=== PATIENT | female | born 1955 | race Two or more races ===

== ENCOUNTER 2023-12-24 10:01 | Emergency (ER) | payer OTHER, MEDICAID ==
[~2023-12-24] VITALS: Ht 157.5 cm; Wt 61.2 kg
[2023-12-24 10:06] VITALS: BP_SYST 195; PULSE 105; RESP 18; TEMP 97.7; O2SAT 97
[2023-12-24] MEDS: HYDROcodone/ACETAMIN 5-325 MG TAB (NORCO/ VICODIN) PO ONE (10:23)
[2023-12-24] MEDS: IBUPROFEN 800 MG TABLET PO ONE (10:24)
[2023-12-24] MEDS ORDERED: IBUP-1969 PO (11:20)
[2023-12-24] MEDS ORDERED: HYDR-3927 PO (11:20)
[2023-12-24] MEDS: MORPHINE 4 MG INJ. 4 MG/ML VIAL IM ONE (11:34)
[2023-12-24] MEDS: cloNIDine HCL 0.1 MG TABLET PO ONE (11:41)
[2023-12-24 12:46] VITALS: TEMP 97.7
[2023-12-24 12:49] VITALS: BP_SYST 154; PULSE 100; RESP 18; O2SAT 96
== END 2023-12-24 12:50 | disposition home or self-care (01) ==
LOC: SED 10:01
DX: S42.022A Displaced fracture of shaft of left clavicle, initial encounter for closed fracture (principal); V89.2XXA Person injured in unspecified motor-vehicle accident, traffic, initial encounter; Y93.89 Activity, other specified; Y92.89 Other specified places as the place of occurrence of the external cause; Y99.8 Other external cause status
CPT/HCPCS: 99284; 73030; 96372; J2270